=== PATIENT | male | born 1990 | race Caucasian/White ===

== ENCOUNTER 2019-08-20 15:09 | Emergency (ER) | payer OTHER ==
[~2019-08-20] VITALS: Ht 170.2 cm; Wt 61.2 kg
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
[2019-08-20] MEDS ORDERED: NORCO 7.5-3251 EACH PO ×2 (19:25→20:51)
[2019-08-20] MEDS ORDERED: SENNA-DOCUSATE1 EAC1 PO ×2 (19:25→20:51)
[2019-08-20] MEDS ORDERED: FLEXERIL PO ×2 (19:26→20:51)
[2019-08-20 20:55] VITALS: BP 146/95
== END 2019-08-20 20:55 | disposition home or self-care (01) ==
LOC: ER 15:09
DX: S82.391A Other fracture of lower end of right tibia, initial encounter for closed fracture (principal); S82.831A Other fracture of upper and lower end of right fibula, initial encounter for closed fracture; W50.0XXA Accidental hit or strike by another person, initial encounter; Y92.89 Other specified places as the place of occurrence of the external cause; Y93.66 Activity, soccer; Y99.8 Other external cause status